=== PATIENT | female | born 1980 | race African-American/Black ===

== ENCOUNTER 2018-04-18 14:29 | Emergency (ER) | payer OTHER ==
[~2018-04-18] VITALS: Ht 162.6 cm; Wt 81.7 kg
[~2018-04-18 14:29] MED LIST: CLEOCIN HCL150 MG PO; IBUPROFEN 800800 M1 PO; KEFLEX500 MG PO; NOHOMEMEDICATIONS; NORCO 5-325 TA1 EACH PO; POLYMYXIN B/TMP10 ML OP; PREDNISONE 20 M20 MG PO
[2018-04-18] MEDS ORDERED: ERYTHROMYCIN E3.5 G3 OPHTHALMIC (14:58)
[2018-04-18] MEDS ORDERED: KEFLEX500 M1 PO (14:59)
[2018-04-18 15:09] VITALS: BP 160/101
== END 2018-04-18 15:10 | disposition home or self-care (01) ==
LOC: ER 14:29
DX: H00.014 Hordeolum externum left upper eyelid (principal); F17.210 Nicotine dependence, cigarettes, uncomplicated

== ENCOUNTER 2021-09-15 01:06 | Emergency (ER) | payer BC ==
[~2021-09-15] VITALS: Ht 162.6 cm; Wt 104.3 kg
--- NOTE | ~2021-09-15 | EMS ---
[address] [address] EMS Patient Care Report Name: MARYLOU ROBERTSON Room #: DEP LALITO Bill#: [id number] Admission: 09/15/21 Attend Phys: Discharge: 09/15/21 Date of : [birth year] Report #: [id number] THIS REPORT FOR: //name// Report Transmitted: 09/17/2021 14:12 EMS Care Summary [place], [place]/[facility] Incident [id number] @ 09/15/2021 00:43 Incident Location [facility] [place] [address] Patient MARYLOU ROBERTSON Female, 41 Years 1980 Patient Address [address] [place] [address] Patient History Hypertension (HTN),Depression, Patient Allergies No known allergies, Patient Medications None Reported, Hydrochlorothiazide (Hctz), Chief Complaint SUICIDAL IDEATIONS Disposition Transported No Lights/[place] Dis[place] Reason Psychiatric Problem/Abnormal Behavior/Suicide Attempt Transported To [facility] Narrative [id number] dispatched for a 41 year old female conscious and breathing having Suicidal ideations. Patient acknowledges EMS presence is GCS15 and AAOx4. Patient has a patent airway is breathing adequately with strong regular radial pulses. Skin is pink warm and dry. Patient confirms Suicidal ideations and that [address] [address] EMS Patient Care Report Name: MARYLOU ROBERTSON Room #: DEP LALITO Bill#: [id number] Admission: 09/15/21 Attend Phys: Discharge: 09/15/21 Date of : [birth year] Report #: [id number] she has a plan to Cut her wrist. Patient agrees to transport to [facility]. Patient is assisted into the ambulance to sit down on the bench seat and secured with the 5point seatbelt harness. VS are obtained and transport is initiated. Patient confirms alcohol and cocaine use. Assessment conducted is unremarkable. Arrival at the receiving facility patient is offloaded and taken to ED room 4. RN is given report and signatures are obtained. Transfer of care is completed and [id number] returns to service. Initial Vitals @00:52P: 108,R: 16,BP: 161/107,Pain: 0/10,GCS: 15,SpO2: 97,Revised Trauma: 12, @01:00P: 107,R: 18,BP: 160/72,Pain: 0/10,GCS: 15,SpO2: 97,Revised Trauma: 12, Assessments @00:54MENTAL:No Abnormalities,SKIN:No Abnormalities,HEENT:Head/Face: No Abnormalities,Eyes: No Abnormalities,Neck/Airway: No Abnormalities,LUNG SOUNDS:General: No Abnormalities,Left Upper: No Abnormalities,Right Upper: No Abnormalities,Left Lower: No Abnormalities,Right Lower: No Abnormalities,ABDOMEN:General: No Abnormalities,Left Upper: No Abnormalities,Right Upper: No Abnormalities,Left Lower: No Abnormalities,Right Lower: No Abnormalities,PELVIS//GI:No Abnormalities,EXTREMITIES:Left Arm: No Abnormalities,Right Arm: No Abnormalities,Left Leg: No Abnormalities,Right Leg: No Abnormalities,PULSE:Radial: 2+ Normal,NEURO:No Abnormalities, Impression Suicidal Ideation Procedures @00:53 ALS Assessment Response: UnchangedSucceeded Timeline 00:42,Call Received 00:42,Dispatch Notified 00:43,Dispatched 00:44,En Route 00:50,On Scene 00:51,At Patient 00:52,BP: 161/107 M,PULSE: 108,RR: 16 R,SPO2: 97 Ox,ETCO2: ,BG: ,PAIN: 0,GCS: 15, 00:53,ALS Assessment,Response: UnchangedSucceeded, 00:55,Depart Scene 01:00,BP: 160/72 M,PULSE: 107,RR: 18 R,SPO2: 97 Ox,ETCO2: ,BG: ,PAIN: 0,GCS: 15, 01:03,At Destination 01:15,Call Closed [facility] [address] [place] [address] EMS Patient Care Report Name: MARYLOU ROBERTSON [facility] [id number] Admission: 09/15/21 Attend Phys: Discharge: 09/15/21 Date of : 80 Report #: [id number] Disclaimer [email or web address] Copyright 2020 [employer] This EMS Care Summary contains data elements from the applicable legal record (which may be displayed differently). It is designed to provide pertinent information for the following purposes: continuity of care, clinical quality, and state data reporting. The complete legal record is available to ED staff and administrators of the receiving hospital in [facility]'s Patient Tracker. All data is provided "as is."
[~2021-09-15 01:06] MED LIST changes: +ERYTHROMYCIN E3.5 G3 OPHTHALMIC; +KEFLEX500 M1 PO
[2021-09-15] MEDS ORDERED: NOHOMEMEDICATIONS (01:35)
[2021-09-15 02:22] LABS: HEMATOCRIT 37.1 % (37.0-47.0); HEMOGLOBIN 12.2 gm/dL (12.0-15.0); MCH 26.7 pg (26.0-34.0); MCHC 32.8 g/dL (28.0-37.0); MCV 81.3 fL (80.0-100.0); RBC 4.56 mil/uL (4.20-5.00); RDW 14.2 % (10.5-14.5); WBC 6.6 thou/uL (4.0-11.0)
[2021-09-15 02:27] LABS: ANION GAP 13 mmol/L (7-16); BUN 6 mg/dL (7-18); CALCIUM 8.8 mg/dL (8.5-10.1); CHLORIDE 103 mmol/L (98-107); CO2 23 mmol/L (21-32); CREATININE 0.8 mg/dL (0.6-1.0); GLUCOSE 116 mg/dL (74-106); POTASSIUM 3.4 mmol/L (3.5-5.1); SODIUM 139 mmol/L (136-145)
[2021-09-15 02:36] LABS: ALBUMIN 3.9 g/dL (3.4-5.0); SALICYLATE < 2.8 mg/dL (2.8-20.0); SGOT 50 U/L (15-37); SGPT 82 U/L (14-59); TOTAL BILIRUBIN 0.3 mg/dL (0.2-1.0); TOTAL PROTEIN 8.3 g/dL (6.4-8.2)
[2021-09-15 02:46] LABS: URINE BILIRUBIN NEGATIVE (Negative); URINE BLOOD NEGATIVE (Negative); URINE CLARITY CLEAR; URINE COLOR YELLOW; URINE GLUCOSE-RANDOM* NEGATIVE (Negative); URINE KETONES NEGATIVE (Negative); URINE LEUKOCYTES-REFLEX NEGATIVE (Negative); URINE NITRITE-REFLEX NEGATIVE (Negative); URINE PROTEIN (DIPSTICK) NEGATIVE (Negative); URINE SPECIFIC GRAVITY <= 1.005 (1.005-1.035); URINE UROBILINOGEN 0.2 E.U./dl (0.2-1.0)
[2021-09-15 02:54] LABS: AMP/METHAMP Negative (Negative); BARBITURATES Negative (Negative); BENZODIAZEPINES Negative (Negative); COCAINE POSITIVE (Negative); METHADONE Negative (Negative); OPIATES Negative (Negative); PCP Negative (Negative)
[2021-09-15 05:05] VITALS: BP 132/86
== END 2021-09-15 04:30 | disposition home or self-care (01) ==
LOC: ER 01:06
PROVIDERS: Emergency Medicine
DX: R45.851 Suicidal ideations (principal); Z20.822 Contact with and (suspected) exposure to COVID-19; F14.90 Cocaine use, unspecified, uncomplicated; F17.210 Nicotine dependence, cigarettes, uncomplicated; Z72.89 Other problems related to lifestyle